=== PATIENT | male | born 1955 | race Caucasian/White ===

== ENCOUNTER 2018-04-11 15:08 | Emergency (ER) | payer MEDICARE ==
[2018-04-11 15:20] VITALS: TEMP 97.5
[2018-04-11] MEDS ORDERED: MORPHINE SULFATE 4 MG/ML SYRINGE IM STA (15:20)
[2018-04-11] MEDS ORDERED: DIPH,PERTUS(ACELL)TETVAC-LF 0.5 ML VIAL IM ONE (15:20)
--- NOTE | 2018-04-11 15:20 | ED ---
General Adult HPI - General Chief complaint: Fall Stated complaint: Fall Time Seen by Provider: 04/11/18 15:15 Source: patient, EMS, RN notes reviewed, old records reviewed Mode of arrival: ambulatory Limitations: no limitations - History of Present Illness Initial comments: 62-year-old male presents status post trip and fall with head trauma. Patient was climbing [place] large [place], he slipped striking his forehead. There was no loss consciousness. Patient is not on blood thinners. According to EMS they pulled him from the rocks there was significant for had avulsion. Patient is complaining of headache and neck pain at the time my evaluation. No focal numbness or weakness. No chest pain. No abdominal pain. No thoracic or lumbar pain. No extremity pain. - Related Data Home Medications Medication Instructions Recorded Confirmed Gabapentin [Neurontin] 400 mg PO BID 04/11/18 04/11/18 Potassium Chloride [K-Tab ER] 10 meq PO DAILY 04/11/18 04/11/18 Tamsulosin [Flomax] 0.4 mg PO DAILY 04/11/18 04/11/18 Allergies Allergy/AdvReac Type Severity Reaction Status Date / Time No Known Allergies Allergy Verified 04/11/18 15:29 Review of Systems ROS Statement: Those systems with pertinent positive or pertinent negative responses have been documented in the HPI. ROS Other: All systems not noted in ROS Statement are negative. Past Medical History Past Medical History: CVA/TIA History of Any Multi-Drug Resistant Organisms: None Reported Past Surgical History: No Surgical Hx Reported Past Psychological History: No Psychological Hx Reported Smoking Status: Current every day smoker Past Alcohol Use History: Daily Past Drug Use History: None Reported General Exam Limitations: no limitations General appearance: alert, in no apparent distress Head exam: Present: other (Forehead skin avulsion) Eye exam: Present: normal appearance, PERRL ENT exam: Present: normal exam Neck exam: Present: normal inspection, tenderness (Paraspinal and some midline tenderness to palpation.), other (C-collar) Respiratory exam: Present: normal lung sounds bilaterally. Absent: respiratory distress Cardiovascular Exam: Present: regular rate, normal rhythm GI/Abdominal exam: Present: soft. Absent: distended, tenderness, guarding Extremities exam: Present: normal inspection, full ROM, normal capillary refill. Absent: tenderness, pedal edema Back exam: Present: normal inspection, full ROM. Absent: tenderness, paraspinal tenderness, vertebral tenderness Neurological exam: Present: alert, oriented X3, CN II-XII intact Psychiatric exam: Present: normal affect, normal mood Course Vital Signs 04/11/18 15:09 Temperature 97.5 F L Pulse Rate 96 Respiratory 20 Rate Blood Pressure 160/88 O2 Sat by Pulse 95 Oximetry Procedures - Laceration Laceration #1 Consent Obtained: verbal consent Time Out Performed: Yes Indication: laceration Site: face Description: stellate, avulsion, irregular Depth: simple, single layer Anesthetic Used: lidocaine 1% Anesthesia Technique: local infiltration Pre-repair: wound explored, irrigated extensively, deep structures intact Type of Sutures: nylon Size of Sutures: 5-0 Number of Sutures: 3 Technique: simple, interrupted Patient Tolerated Procedure: well Additional Comments: Wound is stellate, with significant irregularities in the border, there is several areas dusky skin. This is irrigated, cleansed, and repaired with both nylon suture and Steri-Strips. Antibiotic dressing is applied. Medical Decision Making - Medical Decision Making 62-year-old male presenting for evaluation of fall with head trauma. CT is obtained, does show chronic calcification and previous CVA, no acute intracranial hemorrhage. CT cervical spine is obtained and shows C7 lamina fracture. Patient is neurologically intact with no focal neurologic findings. He will be kept in a c-collar, transferred to [facility] for further evaluation and treatment. Accepting physician is Dr. Almendarez. Laboratory studies reviewed, no abnormalities in CBC or CMP, alcohol is elevated at 220. - Lab Data Result diagrams: 04/11/18 15:28 04/11/18 15:28 Lab Results 04/11/18 04/11/18 04/11/18 Range/Units 15:28 15:28 15:28 WBC 5.7 (3.8-10.6) k/uL RBC 5.19 (4.30-5.90) m/uL Hgb 15.1 (13.0-17.5) gm/dL Hct 46.4 (39.0-53.0) % MCV 89.4 (80.0-100.0) fL MCH 29.1 (25.0-35.0) pg MCHC 32.5 (31.0-37.0) g/dL RDW 14.9 (11.5-15.5) % Plt Count 183 (150-450) k/uL Neutrophils % 48 % Lymphocytes % 38 % Monocytes % 7 % Eosinophils % 2 % Basophils % 1 % Neutrophils # 2.7 (1.3-7.7) k/uL Lymphocytes # 2.2 (1.0-4.8) k/uL Monocytes # 0.4 (0-1.0) k/uL Eosinophils # 0.1 (0-0.7) k/uL Basophils # 0.0 (0-0.2) k/uL PT 9.7 (9.0-12.0) sec INR 1.0 (<1.2) APTT 24.7 (22.0-30.0) sec Sodium 144 (137-145) mmol/L Potassium 4.4 (3.5-5.1) mmol/L Chloride 107 (98-107) mmol/L Carbon Dioxide 26 (22-30) mmol/L Anion Gap 11 mmol/L BUN 9 (9-20) mg/dL Creatinine 0.65 L (0.66-1.25) mg/dL Est GFR (CKD-EPI)AfAm >90 (>60 ml/min/1.73 sqM) Est GFR (CKD-EPI)NonAf >90 (>60 ml/min/1.73 sqM) Glucose 96 (74-99) mg/dL Calcium 8.7 (8.4-10.2) mg/dL Total Bilirubin 0.4 (0.2-1.3) mg/dL AST 36 (17-59) U/L ALT 34 (21-72) U/L Alkaline Phosphatase 91 (38-126) U/L Total Protein 7.2 (6.3-8.2) g/dL Albumin 4.1 (3.5-5.0) g/dL Serum Alcohol 220 mg/dL Critical Care Time Critical Care Time: Yes Total Critical Care Time: 35 Disposition Clinical Impression: Fall, Head injury, C7 cervical fracture, Facial laceration Disposition: OTHER INSTITUTION NOT DEFINED Condition: Stable Is patient prescribed a controlled substance at d/c from ED?: No Referrals: None,Stated [Primary Care Provider] - 1-2 days Time of Disposition: 16:32 - Out of Hospital Transfer - Req. Specs Out of Hospital Transfer - Requested Specifics: Other Emergency Center ( Transferred to [facility]
[2018-04-11 15:50] LABS: Basophils % (A) 1 %; Eosinophils # (A) 0.1 k/uL (0-0.7); Eosinophils % (A) 2 %; HCT 46.4 % (39.0-53.0); HGB 15.1 gm/dL (13.0-17.5); Lymphocytes # (A) 2.2 k/uL (1.0-4.8); Lymphocytes % (A) 38 %; MCH 29.1 pg (25.0-35.0); MCHC 32.5 g/dL (31.0-37.0); MCV 89.4 fL (80.0-100.0); Monocytes # (A) 0.4 k/uL (0-1.0); Monocytes % (A) 7 %; Neutrophils # (A) 2.7 k/uL (1.3-7.7); Neutrophils % (A) 48 %; Platelet Count 183 k/uL (150-450); RBC 5.19 m/uL (4.30-5.90); RDW 14.9 % (11.5-15.5); WBC 5.7 k/uL (3.8-10.6)
[2018-04-11 15:58] LABS: Partial Thromboplastin Time 24.7 sec (22.0-30.0); Prothrombin Time 9.7 sec (9.0-12.0)
[2018-04-11 16:00] LABS: ALT 34 U/L (21-72); AST 36 U/L (17-59); Albumin 4.1 g/dL (3.5-5.0); Alkaline Phosphatase 91 U/L (38-126); Anion Gap 11 mmol/L; Blood Urea Nitrogen 9 mg/dL (9-20); Calcium 8.7 mg/dL (8.4-10.2); Carbon Dioxide 26 mmol/L (22-30); Chloride 107 mmol/L (98-107); Glucose 96 mg/dL (74-99); Potassium 4.4 mmol/L (3.5-5.1); Sodium 144 mmol/L (137-145); Total Bilirubin 0.4 mg/dL (0.2-1.3); Total Protein 7.2 g/dL (6.3-8.2)
[2018-04-11 16:03] LABS: Alcohol 220 mg/dL
[2018-04-11] MEDS ORDERED: LIDOCAINE 1% INJ 10MG/ML (20 ML MDV) SQ ONE (16:07)
--- NOTE | 2018-04-11 16:13 | CT ---
EXAMINATION TYPE: CT brain mary bethine wo con DATE OF EXAM: 04/11/2018 COMPARISON: NONE HISTORY: Fall injury with headache and neck pain CT DLP: 2007 mGycm. Automated Exposure Control for Dose Reduction was Utilized. TECHNIQUE: CT scan of the head and cervical spine are performed without contrast. FINDINGS: There is no acute intracranial hemorrhage or midline shift identified. There is ventricul ar and sulcal prominence consistent with diffuse cerebral atrophy. There is area of old infarct with dystrophic calcification left frontal lobe with ex vacuo dilatation of adjacent left frontal horn. Th ere is small size acute scalp hematoma over the frontal region with air or laceration just right of m idline near axial image 38. Adjacent calvarium is intact. Vascular consultation distal internal carot id arteries is present. Visualized paranasal sinuses are clear and the globes are intact bilaterally. Cervical spine is visualized in its entirety from C1 through upper thoracic levels and demonstrates d extroconvex scoliotic curvature centered near cervicothoracic junction. Prevertebral soft tissue jerrod ears within normal limits. The C1-C2 articulation is within normal limits on the coronal images. The re is acute nondisplaced fracture through the lamina left C7 level axial image 69 and corresponding s agittal image 30. Alignment is maintained. Vertebral body heights are preserved. There is moderate spurring and disc space narrowing most promin ent at C5-C6 and C6-C7 levels to slightly lesser degree at C4-C5 level. Spinal canal is preserved. Re view of axial images show some uncovertebral facet degenerative changes bilaterally contributing to m ultilevel neural foraminal narrowing this is most prominent at C5 base-C6 level where it is advanced on the left and moderate on the right. Mild to moderate emphysematous change in visualized lung apice s is seen. Thyroid gland is felt within normal limits. IMPRESSION: 1. There is acute nondisplaced linear fracture through the left C7 lamina. Alignment is maintained. 2. No acute intracranial hemorrhage or midline shift is seen. There is mild to moderate diffuse cereb ral atrophy with old left frontal lobe infarct. There is small anterior frontal acute scalp hematoma and laceration just right of midline. Results of study communicated to ordering ER physician via telephone at time of dictation.
--- NOTE | 2018-04-11 16:47 | XR ---
EXAMINATION TYPE: XR chest 1V portable DATE OF EXAM: 04/11/2018 COMPARISON: NONE HISTORY: Trauma and pain TECHNIQUE: Single frontal view of the chest is obtained. FINDINGS: The left costophrenic angle is not included on exam. There is no focal air space opacity o r pneumothorax seen. There is minimal blunting the right costophrenic angle. Some linear strand-like densities at the lung bases may reflect underlying atelectasis or scar. The cardiac silhouette size i s within normal limits. The osseous structures are intact. IMPRESSION: Blunting of the costophrenic angle could be due to chronic pleural reaction rather than p leural effusion. Suspect some interstitial changes, limitations as described
[2018-04-11] MEDS ORDERED: NICOTINE 21MG/24HR PATCH TRANSDERM STA (16:49)
[2018-04-11] MEDS ORDERED: MORPHINE SULFATE 4 MG/ML SYRINGE IVP STA (16:50)
[2018-04-11 17:05] VITALS: BP 148/87; PULSE 97; RESP 18
[2018-04-11] MEDS ORDERED: LORazepam 2 MG/ML INJ IV STA (17:13)
--- NOTE | 2018-04-14 05:44 | CDI ---
Dear Lupillo Phan MD: Please do addendum length of the laceration repair. Thank you, Valeria Rodriguez, Patient Case Manager. If you have any questions, please contact Clinical Manager at [phone]. [facility]
== END 2018-04-11 18:30 | disposition short-term general hospital (02) ==
LOC: EC 15:08
DX: S12.600A Unspecified displaced fracture of seventh cervical vertebra, initial encounter for closed fracture (principal); S01.80XA Unspecified open wound of other part of head, initial encounter; F17.200 Nicotine dependence, unspecified, uncomplicated; Z79.899 Other long term (current) drug therapy; Z23 Encounter for immunization; W17.89XA Other fall from one level to another, initial encounter; Y93.31 Activity, mountain climbing, rock climbing and wall climbing; Y92.828 Other wilderness area as the place of occurrence of the external cause
CPT/HCPCS: 99291; 12013; 96374; 96375; 96372; 90471; 36415; 80053; 85025; 85610; 85730; 80320; 71045; 72125; 70450; 90715; S4990; J2060; J2270; J2001